=== PATIENT | male | born 1955 | race Caucasian/White ===

== ENCOUNTER 2017-04-18 07:35 | Emergency (ER) | payer OTHER ==
[~2017-04-18] VITALS: Ht 182.9 cm; Wt 90.7 kg
[~2017-04-18 07:35] MED LIST: GLIM2 PO; Keflex500 MG PO; LISI20 PO; Norco 5-325 Ta1 EACH PO; SIMV10 PO
[2017-04-18] MEDS ORDERED: CEPH500 PO (07:54)
[2017-04-18] MEDS ORDERED: Norco 5-325 Ta1 EACH PO (07:54)
== END 2017-04-18 08:04 | disposition home or self-care (01) ==
LOC: ER 07:35
DX: L03.116 Cellulitis of left lower limb (principal); E11.9 Type 2 diabetes mellitus without complications; I10 Essential (primary) hypertension; E78.00 Pure hypercholesterolemia, unspecified; Z91.030 Bee allergy status; F17.200 Nicotine dependence, unspecified, uncomplicated; Z79.899 Other long term (current) drug therapy; Z79.84 Long term (current) use of oral hypoglycemic drugs
CPT/HCPCS: 82947; 99283

== ENCOUNTER 2017-05-23 23:28 | Emergency (ER) | payer OTHER ==
[~2017-05-23] VITALS: Ht 182.9 cm; Wt 95.2 kg
[~2017-05-23 23:28] MED LIST changes: +CEPH500 PO
[2017-05-24] MEDS ORDERED: CEPH500 PO (00:37)
[2017-05-24] MEDS ORDERED: Roxicodone5 MG PO (00:37)
== END 2017-05-24 00:55 | disposition home or self-care (01) ==
LOC: ER 23:28
DX: L03.116 Cellulitis of left lower limb (principal); E11.9 Type 2 diabetes mellitus without complications; I10 Essential (primary) hypertension; E78.00 Pure hypercholesterolemia, unspecified; F17.200 Nicotine dependence, unspecified, uncomplicated; Z91.038 Other insect allergy status; Z79.84 Long term (current) use of oral hypoglycemic drugs; Z79.899 Other long term (current) drug therapy; Z79.2 Long term (current) use of antibiotics
CPT/HCPCS: 73630; 99283

== ENCOUNTER 2017-12-03 20:00 | Emergency (ER) | payer OTHER ==
[~2017-12-03] VITALS: Ht 177.8 cm; Wt 96.2 kg
[~2017-12-03 20:00] MED LIST changes: +Roxicodone5 MG PO
[2017-12-03] MEDS ORDERED: ZESTORETIC 20-121 EA (20:38)
[2017-12-03] MEDS ORDERED: FLUT1DIS2 INH (20:39)
[2017-12-03] MEDS ORDERED: METF500C PO (20:39)
[2017-12-03] MEDS ORDERED: Naprosyn500 MG PO (21:04)
== END 2017-12-03 21:11 | disposition home or self-care (01) ==
LOC: ER 20:00
DX: M10.9 Gout, unspecified (principal); Z91.030 Bee allergy status; Z79.899 Other long term (current) drug therapy; I10 Essential (primary) hypertension; E11.9 Type 2 diabetes mellitus without complications; E78.00 Pure hypercholesterolemia, unspecified; F17.210 Nicotine dependence, cigarettes, uncomplicated
CPT/HCPCS: 73100; 99283-25